=== PATIENT | male | born 1965 | race Caucasian/White ===

== ENCOUNTER 2024-02-20 11:28 | Inpatient (IN) | payer OTHER ==
[~2024-02-20] VITALS: Ht 157.5 cm; Wt 75.9 kg
[2024-02-20 12:49] LABS: BASOPHILS % 0.5 % (0.0-2.0); EOSINOPHILS % 0.2 % (0.0-5.0); HEMATOCRIT. 47.8 % (42.0-52.0); HEMOGLOBIN. 15.4 g/dL (14.0-18.0); LYMPHOCYTES % 7.4 % (20.0-50.0); MEAN CORPUSCULAR HEMOGLOBIN 29.9 pg (28.0-32.0); MEAN CORPUSCULAR HGB CONC 32.1 g/dL (31.0-37.0); MEAN PLATELET VOLUME 10.8 fl (7.4-10.4); MONOCYTES % 10.2 % (2.0-8.0); NEUTROPHILS % 81.7 % (40.0-76.0); PLATELET 275 x1000/uL (130-400); RED BLOOD CELL COUNT 5.14 mill/uL (4.7-6.1); RED CELL DISTRIBUTION WIDTH 13.5 % (11.6-14.6)
[2024-02-20 12:53] LABS: CHLORIDE 99 mEq/L (98-107); POTASSIUM 5.1 mEq/L (3.5-5.1); SODIUM 135 mEq/L (136-145)
[2024-02-20 12:54] LABS: CARBON DIOXIDE 25 mEq/L (21-32)
[2024-02-20 12:55] LABS: CALCIUM 10.5 mg/dL (8.7-10.4)
[2024-02-20 12:59] LABS: INR 0.9; PROTHROMBIN TIME 10.6 sec (9.6-11.0)
[2024-02-20 13:00] LABS: CREATININE 3.2 mg/dL (0.6-1.3); UREA NITROGEN BLOOD 92 mg/dL (9-23)
[2024-02-20 13:01] LABS: TROPONIN I HIGH SENSITIVITY 5 ng/L (3.0-53)
[2024-02-20 13:13] LABS: GLUCOSE 1276 mg/dL (70-105)
[2024-02-20] MEDS ORDERED: INSULIN REGULAR (DRIP) 100 UNITS in SODIUM CHLORIDE 0.9% 99 ML IV SCH (13:15)
[2024-02-20] MEDS: ASPIRIN 81MG TABLET PO ONE (13:19)
[2024-02-20] MEDS: SODIUM CHLORIDE 0.9% 1,000 ML IV ONE ×2 (13:33)
[2024-02-20 14:02] LABS: CLARITY URINE CLEAR (CLEAR); COLOR URINE YELLOW (YELLOW); GLUCOSE URINE 3+ (NEGATIVE); KETONES URINE TRACE (NEGATIVE); LEUKOCYTE ESTERASE URINE NEGATIVE (NEGATIVE); NITRITE URINE NEGATIVE (NEGATIVE); OCCULT BLOOD URINE NEGATIVE (NEGATIVE); PROTEIN URINE NEGATIVE (NEGATIVE); SPECIFIC GRAVITY URINE 1.032 (1.005-1.030); UROBILINOGEN URINE 0.2 E.U./dL (0.2-1.0)
[2024-02-20] MEDS: INSULIN REGULAR 100U/100ML PMX 100 ML IV SCH (14:20)
[2024-02-20 14:27] LABS: SQUAMOUS EPITHELIAL CELL URINE RARE /lpf (RARE/1+)
[2024-02-20 14:28] LABS: BACTERIA URINE NONE SEEN; RBC URINE NONE SEEN /hpf (0-2); WBC URINE 0-2 /hpf (0-2)
[2024-02-20 22:24] LABS: CHLORIDE 124 mEq/L (98-107); POTASSIUM 4.2 mEq/L (3.5-5.1)
[2024-02-20 22:25] LABS: CARBON DIOXIDE 24 mEq/L (21-32)
[2024-02-20 22:30] LABS: CREATININE 2.5 mg/dL (0.6-1.3); UREA NITROGEN BLOOD 75 mg/dL (9-23)
[2024-02-20 22:32] LABS: ALANINE AMINOTRANSFERASE 64 IU/L (10-49); ALBUMIN 3.8 g/dL (3.2-4.8); ASPARTATE AMINOTRANSFERASE 25 IU/L (<34); BILIRUBIN TOTAL 0.4 mg/dL (0.1-1.0)
[2024-02-20 22:34] LABS: GLUCOSE 195 mg/dL (70-105)
[2024-02-20 22:36] LABS: SODIUM 160 mEq/L (136-145)
[2024-02-20] MEDS: DEXTROSE 5% WATER 1,000 ML IV SCH (23:18)
[2024-02-21 03:29] LABS: POTASSIUM 4.1 mEq/L (3.5-5.1)
[2024-02-21 03:30] LABS: CALCIUM 9.6 mg/dL (8.7-10.4)
[2024-02-21 03:35] LABS: CREATININE 2.4 mg/dL (0.6-1.3)
[2024-02-21] MEDS ORDERED: ONDANSETRON HCL 4MG/2ML INJ IV PRN (09:30)
[2024-02-21] MEDS ORDERED: DOCUSATE SODIUM 100MG CAPSULE PO PRN (09:30)
[2024-02-21] MEDS ORDERED: IPRATROPIUM/ALBUTEROL 0.5-3(2.5)MG/3ML NEB HHN PRN (09:30)
[2024-02-21] MEDS ORDERED: DEXTROSE 50% WATER 50ML SYRINGE IV PRN (09:30)
[2024-02-21] MEDS ORDERED: ACETAMINOPHEN 325MG TABLET PO PRN ×2 (09:30)
[2024-02-21] MEDS ORDERED: CLONIDINE 0.1MG TABLET PO PRN (09:30)
[2024-02-21 10:06] LABS: CARBON DIOXIDE 26 mEq/L (21-32); CHLORIDE 122 mEq/L (98-107); POTASSIUM 3.8 mEq/L (3.5-5.1)
[2024-02-21 10:07] LABS: CALCIUM 9.7 mg/dL (8.7-10.4)
[2024-02-21 10:12] LABS: CREATININE 2.2 mg/dL (0.6-1.3); GLUCOSE 79 mg/dL (70-105); UREA NITROGEN BLOOD 80 mg/dL (9-23)
[2024-02-21] MEDS: PANTOPRAZOLE SODIUM 40 MG/VIAL IV SCH (10:30)
[2024-02-21] MEDS ORDERED: SODIUM CHLORIDE 0.45% 1,000 ML IV ONE (10:30)
[2024-02-21 10:40] LABS: SODIUM 156 mEq/L (136-145)
[2024-02-21 10:50] LABS: BG BASE EXCESS -1.8 mmol/L (-2.0-3.0); BG CARBOXYHEMOGLOBIN 0.3 % (0.5-1.5); BG DEOXYHEMOGLOBIN 6.4 % (0.0-5.0); BG FRACTION INSPIRED OXYGEN 21; BG HCO3 ACT 20.7 mmol/L (21.0-28.0); BG METHEMOGLOBIN 0.2 % (0.5-1.5); BG OXYGEN SATURATION 93.6 % (94.0-98.0); BG OXYHEMOGLOBIN 93.1 % (94.0-98.0); BG PCO2 29.3 mmHg (35.0-48.0); BG PH 7.467 (7.350-7.450); BG PO2 67.5 mmHg (83.0-108.0); BG SAMPLE SITE LEFT BRACHIAL; BG TOTAL HEMOGLOBIN 14.3 g/dL (13.5-17.5); BG VENT MODE ROOM AIR
[2024-02-21] MEDS: SODIUM CHLORIDE 0.45% 1,000 ML IV SCH (11:58)
[2024-02-21] MEDS ORDERED: POTASSIUM PHOSPHATE 20 MMOL in DEXT 5% WATER 243.3333 ML IV NR (12:30)
[2024-02-21] MEDS: INSULIN LISPRO 100 UNITS/ML SUBCUT SCH (13:20)
[2024-02-21] MEDS: BLOOD SUGAR DIAGNOSTIC STRIP TEST SCH (13:58)
[2024-02-21 15:56] VITALS: BP 129/73; PULSE 103; RESP 18; TEMP 36.1956
[2024-02-21 16:00] VITALS: BP 129/73; PULSE 103; RESP 18; TEMP 36.16956; O2SAT 96
[2024-02-21 20:00] VITALS: BP 118/77; PULSE 100; RESP 19; TEMP 36.50292; O2SAT 96
[2024-02-21] MEDS: INSULIN GLARGINE 100 UNITS/ML SUBCUT SCH (21:09)
[2024-02-22] VITALS: BP 99/51; PULSE 98; RESP 19; TEMP 37.2252; O2SAT 97
[2024-02-22 04:00] VITALS: BP 104/61; PULSE 83; RESP 18; TEMP 36.6696; O2SAT 98
[2024-02-22 05:32] LABS: CHLORIDE 115 mEq/L (98-107); POTASSIUM 4.2 mEq/L (3.5-5.1); SODIUM 149 mEq/L (136-145)
[2024-02-22 05:33] LABS: CALCIUM 9.1 mg/dL (8.7-10.4); CARBON DIOXIDE 24 mEq/L (21-32)
[2024-02-22 05:36] LABS: BASOPHILS % 1.2 % (0.0-2.0); EOSINOPHILS % 7.7 % (0.0-5.0); HEMOGLOBIN. 13.9 g/dL (14.0-18.0); LYMPHOCYTES % 30.1 % (20.0-50.0); MEAN CORPUSCULAR HEMOGLOBIN 30.8 pg (28.0-32.0); MEAN CORPUSCULAR HGB CONC 33.9 g/dL (31.0-37.0); MEAN CORPUSCULAR VOLUME 90.9 fL (80.0-94.0); MEAN PLATELET VOLUME 9.6 fl (7.4-10.4); MONOCYTES % 14.5 % (2.0-8.0); NEUTROPHILS % 46.5 % (40.0-76.0); PLATELET 187 x1000/uL (130-400); RED BLOOD CELL COUNT 4.51 mill/uL (4.7-6.1); RED CELL DISTRIBUTION WIDTH 13.3 % (11.6-14.6); WHITE BLOOD COUNT 4.2 x1000/uL (4.5-11.0)
[2024-02-22 05:38] LABS: CREATININE 1.9 mg/dL (0.6-1.3); TRIGLYCERIDE 217 mg/dL (0-150); UREA NITROGEN BLOOD 56 mg/dL (9-23)
[2024-02-22 05:39] LABS: LDL CHOLESTEROL 36 mg/dL (5-100)
[2024-02-22 05:40] LABS: ALANINE AMINOTRANSFERASE 47 IU/L (10-49); ALBUMIN 3.4 g/dL (3.2-4.8); ASPARTATE AMINOTRANSFERASE 23 IU/L (<34); BILIRUBIN DIRECT 0.2 mg/dL (<=3.0); BILIRUBIN TOTAL 0.8 mg/dL (0.1-1.0); CHOLESTEROL 98 mg/dL (<200); HDL CHOLESTEROL 27 mg/dL (>55); PROTEIN TOTAL 6.3 g/dL (6.0-8.3)
[2024-02-22 05:50] LABS: GLUCOSE 287 mg/dL (70-105)
[2024-02-22 08:00] VITALS: BP 112/73; PULSE 80; RESP 19; TEMP 36.83628; O2SAT 99
[2024-02-22 12:00] VITALS: BP 125/78; PULSE 83; RESP 18; TEMP 36.9474; O2SAT 98
[2024-02-22] MEDS: POTASSIUM PHOSPHATE 20 MMOL in DEXT 5% WATER 243.3333 ML IV NR (14:54)
[2024-02-22 16:00] VITALS: BP 125/73; PULSE 87; RESP 19; TEMP 36.50292; O2SAT 98
[2024-02-22 20:00] VITALS: BP 133/74; PULSE 94; RESP 18; TEMP 36.50292; O2SAT 97
[2024-02-23] VITALS: BP 134/82; PULSE 88; RESP 16; TEMP 37.28076; O2SAT 97
[2024-02-23 04:00] VITALS: BP 131/84; PULSE 70; RESP 16; TEMP 36.16956; O2SAT 99
[2024-02-23 06:25] LABS: POTASSIUM 3.7 mEq/L (3.5-5.1)
[2024-02-23 06:26] LABS: CALCIUM 8.6 mg/dL (8.7-10.4)
[2024-02-23 06:31] LABS: CREATININE 1.3 mg/dL (0.6-1.3)
[2024-02-23 07:18] LABS: BASOPHILS % 1.4 % (0.0-2.0); EOSINOPHILS % 9.3 % (0.0-5.0); HEMATOCRIT. 34.8 % (42.0-52.0); HEMOGLOBIN. 11.9 g/dL (14.0-18.0); LYMPHOCYTES % 45.8 % (20.0-50.0); MEAN CORPUSCULAR HEMOGLOBIN 30.4 pg (28.0-32.0); MEAN CORPUSCULAR HGB CONC 34.1 g/dL (31.0-37.0); MEAN PLATELET VOLUME 9.9 fl (7.4-10.4); MONOCYTES % 14.5 % (2.0-8.0); PLATELET 151 x1000/uL (130-400); RED BLOOD CELL COUNT 3.91 mill/uL (4.7-6.1); RED CELL DISTRIBUTION WIDTH 12.7 % (11.6-14.6)
[2024-02-23] MEDS: METFORMIN HCL 500MG TABLET PO SCH (07:55)
[2024-02-23 08:00] VITALS: BP 112/84; PULSE 80; RESP 18; TEMP 36.83628; O2SAT 100
[2024-02-23] MEDS ORDERED: METF-414 PO (10:02)
[2024-02-23] MEDS ORDERED: LANTUSUD SUBCUT ×2 (10:02)
[2024-02-23] MEDS: INSULIN GLARGINE 100 UNITS/ML SUBCUT SCH (10:08)
[2024-02-23 12:00] VITALS: BP 118/76; PULSE 89; RESP 19; TEMP 36.89184; O2SAT 97
[2024-02-23 14:21] VITALS: BP 118/76; PULSE 89; TEMP 98.4; O2SAT 98
[2024-02-23] MEDS ORDERED: INSULIN GLARGINE 100 UNITS/ML SUBCUT SCH (22:00)
[2024-02-24] MEDS ORDERED: FAMOTIDINE 20MG TABLET PO SCH (09:00)
== END 2024-02-23 15:40 | disposition home health service (06) | DRG 420 ==
LOC: ER 11:28 → EDBEDREQ 14:13 → EDBEDREQSVC 14:13 → 7EST 02-21 13:48 → EDBEDREQSVC 02-21 13:59
PROVIDERS: ADMIT Internal Medicine; ATTEND Internal Medicine
DX: E11.00 Type 2 diabetes mellitus with hyperosmolarity without nonketotic hyperglycemic-hyperosmolar coma (NKHHC) (principal); R57.1 Hypovolemic shock; J96.01 Acute respiratory failure with hypoxia; G93.41 Metabolic encephalopathy; N17.9 Acute kidney failure, unspecified; E11.10 Type 2 diabetes mellitus with ketoacidosis without coma; E87.0 Hyperosmolality and hypernatremia; E83.39 Other disorders of phosphorus metabolism; D72.821 Monocytosis (symptomatic); E86.9 Volume depletion, unspecified; R00.0 Tachycardia, unspecified; I12.9 Hypertensive chronic kidney disease with stage 1 through stage 4 chronic kidney disease, or unspecified chronic kidney disease; E78.5 Hyperlipidemia, unspecified; E87.8 Other disorders of electrolyte and fluid balance, not elsewhere classified; R74.8 Abnormal levels of other serum enzymes; N18.9 Chronic kidney disease, unspecified; R41.89 Other symptoms and signs involving cognitive functions and awareness; D64.9 Anemia, unspecified; D72.819 Decreased white blood cell count, unspecified; E87.1 Hypo-osmolality and hyponatremia; Z79.4 Long term (current) use of insulin; Z83.3 Family history of diabetes mellitus; Z90.49 Acquired absence of other specified parts of digestive tract
CPT/HCPCS: 36415; 36600; 71045; 80048; 80053; 80061; 80076; 81003; 82375; 82805; 82962; 83036; 83735; 84100; 84484; 84681; 85025; 93005; 93970; 99291; J1815; J2470; J3490; J7030; J7060